=== PATIENT | male | born 1960 | race Caucasian/White ===

== ENCOUNTER 2018-11-03 21:36 | Inpatient (IN) | payer OTHER ==
[~2018-11-03] VITALS: Ht 190.5 cm; Wt 91.0 kg
[2018-11-03] MEDS ORDERED: SOD CHLORIDE 0.9% 1,000 ML IV STA (22:16)
[2018-11-03] MEDS ORDERED: ONDANSETRON 4 MG INJ IV STA (22:16)
[2018-11-03] MEDS ORDERED: morphine 4 MG/ML VIAL IV STA (22:20)
--- NOTE | 2018-11-03 22:25 | ERD ---
ER Documentation Chief Complaint Chief Complaint patient c/o nausea; not feeling good x 2 days HPI This is a 58-year-old male who presents for dilation of nausea, and left-sided abdominal pain, he has a history of a left inguinal hernia, which is currently being planned for repair. He has not had any vomiting, he has not noted any skin changes, he denies a fever. He has not had any chest pain or shortness of breath. He has been having normal bowel movements. ROS All systems reviewed and are negative except as per history of present illness. Allergies Allergies: Coded Allergies: No Known Allergy (Unverified , 11/03/18) Physical Exam Vitals Vital Signs Date Temp Pulse Resp B/P (MAP) Pulse Ox O2 O2 Flow FiO2 Time Delivery Rate 11/04/18 83 18 140/80 98 Room Air 00:00 (100) 11/03/18 97.1 96 18 130/83 97 21:55 (99) Physical Exam Const: No acute distress, afebrile, nontoxic Head: Atraumatic Eyes: Normal Conjunctiva ENT: Normal External Ears, Nose and Mouth. Neck: Full range of motion. No meningismus. Resp: Clear to auscultation bilaterally Cardio: Regular rate and rhythm, no murmurs Abd: Soft, there is tenderness over the left inguinal area, there is no overlying erythema or induration, there is no crepitus, there is no rebound or guarding. Normal bowel sounds Skin: No petechiae or rashes Back: No midline or flank tenderness Ext: No cyanosis, or edema Neur: Awake and alert Psych: Normal Mood and Affect Result Diagram: 11/03/188 11/03/182228 Results 24 hrs Laboratory Tests Test 11/03/18 22:28 11/03/18 22:29 11/03/18 22:32 White Blood Count 16.0 10^3/ul Red Blood Count 5.52 10^6/ul Hemoglobin 16.3 g/dl Hematocrit 48.7 % Mean Corpuscular Volume 88.2 fl Mean Corpuscular Hemoglobin 29.5 pg Mean Corpuscular 33.5 g/dl Hemoglobin Concent Red Cell Distribution Width 13.0 % Platelet Count 306 10^3/UL Mean Platelet Volume 9.8 fl Immature Granulocytes % 0.300 % Neutrophils % 83.5 % Lymphocytes % 9.1 % Monocytes % 6.6 % Eosinophils % 0.3 % Basophils % 0.2 % Nucleated Red Blood Cells % 0.0 /100WBC Immature Granulocytes # 0.050 10^3/ul Neutrophils # 13.4 10^3/ul Lymphocytes # 1.5 10^3/ul Monocytes # 1.1 10^3/ul Eosinophils # 0.1 10^3/ul Basophils # 0.0 10^3/ul Nucleated Red Blood Cells # 0.0 10^3/ul Troponin I < 0.012 ng/ml Sodium Level 140 mmol/L Potassium Level 3.7 mmol/L Chloride Level 98 mmol/L Carbon Dioxide Level 29 mmol/L Anion Gap 13 Blood Urea Nitrogen 24 mg/dl Creatinine 0.77 mg/dl Est Glomerular Filtrat Rate mL/min > 60 mL/min Glucose Level 188 mg/dl Calcium Level 10.1 mg/dl Total Bilirubin 0.8 mg/dl Direct Bilirubin 0.00 mg/dl Indirect Bilirubin 0.8 mg/dl Aspartate Amino Transf (AST/SGOT) 16 IU/L Alanine 24 IU/L Aminotransferase (ALT/SGPT) Alkaline Phosphatase 38 IU/L Total Protein 6.9 g/dl Albumin 4.3 g/dl Globulin 2.60 g/dl Albumin/Globulin Ratio 1.65 Lipase 54 U/L POC Venous Lactate 1.4 mmol/L Current Medications Medications Dose Sig/Taj Start Time Status Last (Trade) Ordered Route PRN Stop Time Admin Dose Reason Admin Sodium 1,000 ml @ Q1H STAT 11/03/18 DC 11/03/18 Chloride 1,000 mls/hr IV 22:16 22:34 11/03/18 23:15 Ondansetron 4 mg ONCE STAT 11/03/18 DC 11/03/18 HCl (Zofran IV 22:16 22:35 Inj) 11/03/18 22:17 Morphine 4 mg ONCE STAT 11/03/18 DC 11/03/18 Sulfate IV 22:20 22:35 (morphine) 11/03/18 22:21 Procedures/MDM This is a 58-year-old male who presents for evaluation of left inguinal pain. On exam, there was left-sided inguinal hernia, that was palpable, and not reducible. CT abdomen pelvis was performed which showed an incarcerated left- sided hernia, with evidence of small bowel obstruction. Lactate was negative, patient has remained hemodynamic stable in the ED. Discussed plan of care with family, and the patient will be admitted. Accepting Care Team: Current data and ongoing care discussed. Primary: Too Consulting: Brian Outstanding Data: none EKG: Rate/Rhythm: Normal Sinus Rhythm QRS, ST, T-waves: No changes consistent w/ acute ischemia Impression: No evidence of ischemia or arrhythmia Departure Diagnosis: Primary Impression: Incarcerated hernia Additional Impression: Small bowel obstruction Condition: Stable NILSA PEREZ MD Nov 03, 2018 22:25
[2018-11-04] VITALS (13 sets, daily range): BP systolic 94–145; BP diastolic 57–81; PULSE 56–89; RESP 16–21; Ht 190.5 cm; Wt 91.0 kg
[2018-11-04] MEDS ORDERED: ONDANSETRON 4 MG INJ IV PRN ×3 (03:00→13:00)
[2018-11-04] MEDS ORDERED: morphine 4 MG/ML VIAL IV PRN (03:00)
[2018-11-04] MEDS: DEXTROSE 5%-0.45% NACL 1,000 ML IV SCH ×3 (03:19→16:42)
--- NOTE | 2018-11-04 10:41 | HP ---
DATE OF ADMISSION: 11/04/2018 CHIEF COMPLAINT: Left lower abdominal pain associated with nausea x2 days. HISTORY OF PRESENT ILLNESS: A 58-year-old male with unremarkable past medical history who presented to emergency room with complaint of left-sided lower abdominal pain x2 days associated with nausea. The patient has had a left inguinal hernia. He denies any vomiting. He denies any fevers or chills. Initial evaluation revealed white blood cell count of 16,000. Lactate level was normal. CAT scan of the abdomen and pelvis showed moderate left inguinal hernia containing a focal loop of small bowel with surrounding stranding and fluid suggestive of incarceration. There was evidence of small-bowel obstruction. Small right inguinal hernia was also noted containing non-obstructed loop of small bow el. On review of systems the patient denies any chest pain at rest or with exertion. He has no cardiac h istory. PAST MEDICAL HISTORY: None. MEDICATIONS PRIOR TO ADMISSION: None. SOCIAL HISTORY: The patient has a long history of heavy tobacco use and smokes 1 pack of cigarettes per day. He denies alcohol. PHYSICAL EXAMINATION: GENERAL: Well-developed, well-nourished male who is in no apparent distress. VITAL SIGNS: Stable. He is afebrile. HEENT: Extraocular muscles intact. Pupils are equal, round and reactive to light bilaterally. Scle ramirez are anicteric. Oropharynx is clear and moist. NECK: Supple, no JVD, no carotid bruits. LUNGS: Clear to auscultation bilaterally. CARDIAC: Regular rate and rhythm. No murmurs, rubs or gallops. ABDOMEN: Soft, nontender, nondistended. EXTREMITIES: Left inguinal bulge was noted, which was mildly tender to palpation and nonreducible. EXTREMITIES: No clubbing, cyanosis, or edema. NEUROLOGIC: Nonfocal. LABORATORY DATA: His basic metabolic panel was within normal limits. ASSESSMENT: 1. A 58-year-old male with incarcerated left inguinal hernia. 2. Small right inguinal hernia. 3. Nicotine addiction. PLAN: 1. Admit to med/surg n.p.o. 2. Proceed with the repair of bilateral inguinal hernias. 3. The patient is medically cleared for the proposed procedure. Dictated By: ESTEE GOLDSTEIN/KEN Conf#: [id number] DID#: [id number] CC: ESTEE DEL ROSARIO MD;*EndCC*
--- NOTE | 2018-11-04 11:00 | PREAC ---
Date/Time of Note Date/Time of Note DATE: 11/04/18 TIME: 10:59 Anesthesia Eval and Record Evaluation Time Pre-Procedure Interview DATE: 11/04/18 TIME: 10:59 Age 58 Sex male NPO: 8 hrs Preoperative diagnosis left incarcerated inguinal hernia, SBO Planned procedure Left inguinal hernia repair Past Medical History Past Medical History: None Surgery & Anesthesia Issues No known issue Meds Anticoagulation: No Beta Anette within 24 hr: No Reason Beta Anette not given: Pt. not on B-Anette Current Medications Morphine Sulfate (morphine) 3 mg Q3H PRN IV SEVERE PAIN LEVEL 7-10; Start 11/04/18 at 03:00 Ondansetron HCl (Zofran Inj) 4 mg Q6H PRN IV NAUSEA AND/OR VOMITING; Start 11/04/18 at 03:00 Dextrose/Sodium Chloride 1,000 ml @ 100 mls/hr Q10H IV Last administered on 11/04/18at 03:19; Admin Dose 100 MLS/HR; Start 11/04/18 at 03:00 Meds reviewed: Yes Allergies Coded Allergies: No Known Allergy (Unverified , 11/03/18) Allergies Reviewed: Yes Labs/Studies Labs Reviewed: Reviewed by anesthesiologist Result Diagram: 11/03/18 2228 11/03/18 2229 Laboratory Tests 11/03/18 22:28 11/03/18 22:29 test: N/A Studies: ECG (sr), CXR (n/a) Pre-procedure Exam Last vitals Vital Signs Date Temp Pulse Resp B/P (MAP) Pulse Ox O2 O2 Flow FiO2 Time Delivery Rate 11/04/18 98.5 78 18 111/69 93 Room Air 07:19 (83) 11/04/18 2.0 01:48 Airway: Adequate mouth opening Mallampati: Mallampati I Teeth: Normal Lung: Normal Heart: Normal ASA Physical Status ASA physical status: 1 Emergency: None Planned Anesthetic General/MAC: ETT, LMA Nerve block: TAP (left) Planned Pain Management Single shot nerve block, Parenteral pain med Pre-operative Attestations Prior to commencing anesthesia and surgery, the patient was re-evaluated, there was verification of: *The patient's identity *The results of appropriate recent lab work and preoperative vital signs *The above evaluation not changing prior to induction *Anesthetic plan, risk benefits, alternative and complications discussed with patient/family; questions answered; patient/family understands, accepts and wishes to proceed. GRECIA NICOLAS MD Nov 04, 2018 11:00
[2018-11-04] MEDS ORDERED: BUPIVACAINE 0.25% (MPF) 30 ML INJ ONE (11:02)
[2018-11-04] MEDS ORDERED: ONDANSETRON 4 MG INJ ONE (11:12)
[2018-11-04] MEDS ORDERED: NEOSTIGMINE 3 MG/3 ML SYRINGE ONE (11:12)
[2018-11-04] MEDS ORDERED: METOCLOPRAMIDE 10 MG INJ ONE (11:12)
[2018-11-04] MEDS ORDERED: PROPOFOL 20 ML ONE (11:12)
[2018-11-04] MEDS ORDERED: MIDAZOLAM 1 MG/ML 2 ML INJ ONE (11:12)
[2018-11-04] MEDS ORDERED: ROPIVACAINE 0.5 % 30 ML VIAL ONE (11:12)
[2018-11-04] MEDS ORDERED: CEFAZOLIN 1 GM INJ ONE (11:12)
[2018-11-04] MEDS ORDERED: GLYCOPYRROLATE 0.4 MG INJ ONE (11:12)
[2018-11-04] MEDS ORDERED: ROCURONIUM 50 MG INJ ONE (11:12)
--- NOTE | 2018-11-04 11:12 | CONS ---
Assessment/Plan Assessment/Plan Assessment/Plan (Daily) Incarcerated left inguinal hernia with small bowel obstruction Plan: Urgent operative repair. Possible bowel resection. Consultation Date/Type/Reason Admit Date/Time Nov 04, 2018 at 01:32 Date of Consultation: Nov 04, 2018 Type of Consult General surgery Reason for Consultation Incarcerated left inguinal hernia with small bowel obstruction Date/Time of Note DATE: 11/04/18 TIME: 11:09 Hx of Present Illness The patient is an otherwise healthy 58-year-old gentleman who has known bilateral inguinal hernias. He presents with a 1 day history of severe pain in the left groin associated with incarcerated mass and associated nausea and vomiting. CT scan shows an incarcerated left inguinal hernia with involvement of the loop of small bowel and a small bowel obstruction. Review of systems: HEENT: Within normal limits Pulmonary: No history of asthma, pneumonia or shortness of breath Cardiac: No history of chest pain, MO or arrhythmia GI: As in the HPI : Asymptomatic Past Medical History Medical History: no pertinent history Medications Current Medications Morphine Sulfate (morphine) 3 mg Q3H PRN IV SEVERE PAIN LEVEL 7-10; Start 11/04/18 at 03:00 Ondansetron HCl (Zofran Inj) 4 mg Q6H PRN IV NAUSEA AND/OR VOMITING; Start 11/04/18 at 03:00 Dextrose/Sodium Chloride 1,000 ml @ 100 mls/hr Q10H IV Last administered on 11/04/18at 03:19; Admin Dose 100 MLS/HR; Start 11/04/18 at 03:00 Hydromorphone HCl (Dilaudid) 0.2 mg PACU PRN IV MILD PAIN 1-3; Start 11/04/18 at 11:30; Stop 11/04/18 at 19:00; Status UNV Hydromorphone HCl (Dilaudid) 0.4 mg PACU PRN IV MOD PAIN 4-6; Start 11/04/18 at 11:30; Stop 11/04/18 at 19:00; Status UNV Hydromorphone HCl (Dilaudid) 0.6 mg PACU PRN IV SEVERE PAIN 7-10; Start 11/04/18 at 11:30; Stop 11/04/18 at 19:00; Status UNV Fentanyl (Sublimaze) 25 mcg PACU ORDER PRN IV MILD PAIN 1-3; Start 11/04/18 at 11:30; Stop 11/04/18 at 19:00; Status UNV Fentanyl (Sublimaze) 50 mcg PACU ORDER PRN IV MOD PAIN 4-6; Start 11/04/18 at 11:30; Stop 11/04/18 at 19:00; Status UNV Fentanyl (Sublimaze) 75 mcg PACU ORDER PRN IV SEVERE PAIN 7-10; Start 11/04/18 at 11:30; Stop 11/04/18 at 19:00; Status UNV Ketorolac Tromethamine (Toradol) 30 mg PACU ORDER PRN IV FOR PAIN AFTER IV NARCOTIC MED; Start 11/04/18 at 11:30; Stop 11/04/18 at 19:00; Status UNV Ondansetron HCl (Zofran Inj) 4 mg PACU ORDER PRN IV NAUSEA/VOMITING; Start 11/04/18 at 11:30; Stop 11/04/18 at 19:00; Status UNV Meperidine HCl (Demerol) 25 mg PACU ORDER PRN IV .RIGORS; Start 11/04/18 at 11:30; Stop 11/04/18 at 19:00; Status UNV Diphenhydramine HCl (Benadryl) 25 mg PACU ORDER PRN IV .PRURITUS; Start 11/04/18 at 11:30; Stop 11/04/18 at 19:00; Status UNV Allergies: Coded Allergies: No Known Allergy (Unverified , 11/03/18) Past Surgical History Past Surgical Hx: no surgical history Social History Smoking Status: Current every day smoker Exam/Review of Systems Exam Vitals Vital Signs Date Temp Pulse Resp B/P (MAP) Pulse Ox O2 O2 Flow FiO2 Time Delivery Rate 11/04/18 98.5 78 18 111/69 93 Room Air 07:19 (83) 11/04/18 2.0 01:48 Intake and Output 11/03/18 11/03/18 11/04/18 1515:00 23:00 07:00 IntakeIntake Total 300 ml BalanceBalance 300 ml Constitutional: alert, oriented Psych: no complaints Head: normocephalic Eyes: nl conjunctiva ENMT: nl external ears & nose Neck: supple Respiratory: clear to auscultation Cardiovascular: regular rate and rhythm Gastrointestinal: soft Genitourinary - Male: nl penis, other (Bilateral inguinal hernia. 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 Skin: nl turgor Results Result Diagram: 11/03/18222711/03/189 Results 24hrs Laboratory Tests Test 11/03/18 22:28 11/03/18 22:29 11/03/18 22:32 White Blood Count 16.0 H Red Blood Count 5.52 Hemoglobin 16.3 Hematocrit 48.7 Mean Corpuscular Volume 88.2 Mean Corpuscular Hemoglobin 29.5 Mean Corpuscular Hemoglobin Concent 33.5 Red Cell Distribution Width 13.0 Platelet Count 306 Mean Platelet Volume 9.8 Immature Granulocytes % 0.300 Neutrophils % 83.5 H Lymphocytes % 9.1 L Monocytes % 6.6 Eosinophils % 0.3 Basophils % 0.2 Nucleated Red Blood Cells % 0.0 Immature Granulocytes # 0.050 H Neutrophils # 13.4 H Lymphocytes # 1.5 Monocytes # 1.1 H Eosinophils # 0.1 Basophils # 0.0 Nucleated Red Blood Cells # 0.0 Troponin I < 0.012 Sodium Level 140 Potassium Level 3.7 Chloride Level 98 Carbon Dioxide Level 29 Anion Gap 13 Blood Urea Nitrogen 24 H Creatinine 0.77 Est Glomerular Filtrat Rate mL/min > 60 Glucose Level 188 Calcium Level 10.1 Total Bilirubin 0.8 Direct Bilirubin 0.00 Indirect Bilirubin 0.8 Aspartate Amino Transf (AST/SGOT) 16 Alanine Aminotransferase (ALT/SGPT) 24 Alkaline Phosphatase 38 L Total Protein 6.9 Albumin 4.3 Globulin 2.60 Albumin/Globulin Ratio 1.65 Lipase 54 POC Venous Lactate 1.4 Medications Medication Current Medications Morphine Sulfate (morphine) 3 mg Q3H PRN IV SEVERE PAIN LEVEL 7-10; Start 11/04/18 at 03:00 Ondansetron HCl (Zofran Inj) 4 mg Q6H PRN IV NAUSEA AND/OR VOMITING; Start 11/04/18 at 03:00 Dextrose/Sodium Chloride 1,000 ml @ 100 mls/hr Q10H IV Last administered on 11/04/18at 03:19; Admin Dose 100 MLS/HR; Start 11/04/18 at 03:00 Hydromorphone HCl (Dilaudid) 0.2 mg PACU PRN IV MILD PAIN 1-3; Start 11/04/18 at 11:30; Stop 11/04/18 at 19:00; Status UNV Hydromorphone HCl (Dilaudid) 0.4 mg PACU PRN IV MOD PAIN 4-6; Start 11/04/18 at 11:30; Stop 11/04/18 at 19:00; Status UNV Hydromorphone HCl (Dilaudid) 0.6 mg PACU PRN IV SEVERE PAIN 7-10; Start 11/04/18 at 11:30; Stop 11/04/18 at 19:00; Status UNV Fentanyl (Sublimaze) 25 mcg PACU ORDER PRN IV MILD PAIN 1-3; Start 11/04/18 at 11:30; Stop 11/04/18 at 19:00; Status UNV Fentanyl (Sublimaze) 50 mcg PACU ORDER PRN IV MOD PAIN 4-6; Start 11/04/18 at 11:30; Stop 11/04/18 at 19:00; Status UNV Fentanyl (Sublimaze) 75 mcg PACU ORDER PRN IV SEVERE PAIN 7-10; Start 11/04/18 at 11:30; Stop 11/04/18 at 19:00; Status UNV Ketorolac Tromethamine (Toradol) 30 mg PACU ORDER PRN IV FOR PAIN AFTER IV NARCOTIC MED; Start 11/04/18 at 11:30; Stop 11/04/18 at 19:00; Status UNV Ondansetron HCl (Zofran Inj) 4 mg PACU ORDER PRN IV NAUSEA/VOMITING; Start 11/04/18 at 11:30; Stop 11/04/18 at 19:00; Status UNV Meperidine HCl (Demerol) 25 mg PACU ORDER PRN IV .RIGORS; Start 11/04/18 at 11:30; Stop 11/04/18 at 19:00; Status UNV Diphenhydramine HCl (Benadryl) 25 mg PACU ORDER PRN IV .PRURITUS; Start 11/04/18 at 11:30; Stop 11/04/18 at 19:00; Status UNV CHAPITO ESCOBEDO MD Nov 04, 2018 11:12
[2018-11-04] MEDS ORDERED: KETOROLAC 30 MG INJ ONE (11:15)
[2018-11-04] MEDS ORDERED: HYDROmorphONE 1 MG/5 ML IV SYRINGE IV PRN ×3 (11:30)
[2018-11-04] MEDS ORDERED: BUPIVACAINE 0.25% (MPF) 30 ML INJ INJ ONE (11:30)
[2018-11-04] MEDS ORDERED: FENTAnyl 50 MCG/ML VIAL IV PRN ×3 (11:30)
[2018-11-04] MEDS ORDERED: MEPERIDINE 25 MG INJ IV PRN (11:30)
[2018-11-04] MEDS ORDERED: KETOROLAC 30 MG INJ IV PRN (11:30)
[2018-11-04] MEDS ORDERED: DIPHENHYDRAMINE 50 MG INJ IV PRN (11:30)
[2018-11-04] MEDS ORDERED: EPHEDrine 25 MG/5 ML SYG ONE (11:43)
[2018-11-04] MEDS ORDERED: POLYMYXIN/BACITRACIN 1L IRRIG IRR ONE (11:50)
--- NOTE | 2018-11-04 12:33 | OPR ---
Date/Time of Note Date/Time of Note DATE: 11/04/18 TIME: 12:28 Operative Report Procedure Date: Nov 04, 2018 Preoperative Diagnosis Incarcerated left inguinal hernia with secondary small bowel obstruction Postoperative Diagnosis Incarcerated direct left inguinal hernia with secondary small bowel obstruction. Involved small bowel viable. Operation/Procedure Performed 1. Repair left inguinal hernia with extra large plug and release of small bowel obstruction 2. Left ilioinguinal nerve block Surgeon Chapito Escobedo MD [employer] None Anesthesia Type: general Anesthesiologist: GRECIA NICOLAS MD Estimated Blood Loss: minimal Transfusion none Specimen None Grafts/Implants Extra-large Bard PerFix plug Tubes/Drains None Complications none Pt Condition Post Procedure: stable Disposition: PACU Indications Small bowel obstruction Procedure Description After satisfactory general endotracheal anesthesia was achieved, the abdomen and scrotum were prepped and draped in the usual fashion. A 6 cm transverse suprapubic left groin incision was made and carried down to the external oblique aponeurosis which was opened in the direction of its fibers. The hernia could not be reduced at this point yet. The cord was dissected from the hernia sac. The sac was dissected circumferentially. Once this was done it reduced easily. The defect was a direct inguinal hernia. The reduction was maintained by placement of an extra-large plug secured circumferentially to healthy fascia with interrupted 3-0 Vicryl suture. Next the flat portion of the mesh was cut and fashioned to fit in the floor the canal is an overlay. It was anchored at the pubic tubercle with 2-0 Novafil then run approximating mesh to inguinal ligament laterally to be on the internal ring. A second 2-0 Novafil was then run from pubic tubercle to beyond the internal ring approximating mesh to conjoined tendon. The mesh distal to the cord was reconstituted with a single suture of 3-0 Vicryl creating a new internal ring of appropriate size. The cord was then replaced beneath the external oblique which was closed with a running 3-0 Vicryl suture. Albertina's fascia was closed with interrupted 3-0 Vicryl suture and skin closed with subcuticular absorbable carlos. A left inguinal nerve block was performed. 10 cc of 0.25% plain Marcaine were injected into the fascia 1 cm medial and inferior to the left anterior iliac spine. 10 more cc of local anesthetic were injected directly into the skin and subcutaneous tissues. Sponge and needle counts were reported as correct x2 CHAPITO ESCOBEDO MD Nov 04, 2018 12:33
[2018-11-04] MEDS ORDERED: OXYCODONE/ACETAMINOPHEN (5/325) TAB PO PRN ×2 (13:00)
[2018-11-04] MEDS ORDERED: morphine 2 MG INJ IV PRN (13:00)
[2018-11-05 01:34] VITALS: BP 100/55; PULSE 72; RESP 16
[2018-11-05] MEDS ORDERED: ACETAMINOPHEN 325 MG TAB PO PRN (02:00)
[2018-11-05] MEDS: DEXTROSE 5%-0.45% NACL 1,000 ML IV SCH ×2 (02:13→09:00)
--- NOTE | 2018-11-05 07:21 | PAC ---
Date/Time of Note Date/Time of Note DATE: 11/05/18 TIME: 07:21 Post-Anesthesia Notes Post-Anesthesia Note Last documented vital signs Vital Signs Date Temp Pulse Resp B/P (MAP) Pulse Ox O2 O2 Flow FiO2 Time Delivery Rate 11/05/18 98.8 03:58 11/05/18 98.8 72 16 100/55 97 01:34 (70) 11/04/18 Room Air 13:29 11/04/18 2.0 01:48 Activity: WNL Respiratory function: WNL Cardiovascular function: WNL Mental status: Baseline Pain reasonably controlled: Yes Hydration appropriate: Yes Nausea/Vomiting absent: No GRECIA NICOLAS MD Nov 05, 2018 07:21
[2018-11-05 07:24] VITALS: BP 103/51; PULSE 78; RESP 18
[2018-11-05] MEDS ORDERED: HYDR-4011 PO (09:02)
--- NOTE | 2018-11-05 09:03 | PDOCDIS ---
Discharge Instructions CONDITION [id number] Patient Condition: Mudig0h Good HOME CARE INSTRUCTIONS: Iserh7Fl Diet Instructions: [id number] Regular ACTIVITY: Aytyh7Mb Activity Restrictions: [id number] Slowly Increase Activity Avoid heavy lifting FOLLOW UP/APPOINTMENTS Follow-up Plan pcp [address] Torres 1 week OTHER ORDERS: Other Orders: stop smoking ESTEE DEL ROSARIO MD Nov 05, 2018 09:03
--- NOTE | 2018-11-05 10:12 | DS ---
DATE OF ADMISSION: 11/04/2018 DATE OF DISCHARGE: DISCHARGE DIAGNOSES: 1. A 58-year-old male with incarcerated left inguinal hernia. 2. Small-bowel obstruction. 3. Status posts repair of left inguinal hernia and release of incarceration. 4. Small right-sided inguinal hernia. 5. Nicotine addiction. HOSPITAL COURSE: A 58-year-old male who presented with complaint of diffuse abdominal pain associate d with nausea. He was diagnosed with incarcerated left inguinal hernia and small-bowel obstruction. The patient was taken to the operating room by Dr. Escobedo and underwent repair of inguinal hernia an d release of the incarcerated bowel. There were no intraoperative or postoperative complications. T he patient is tolerating oral intake. He is in a stable condition for discharge. I strongly advised him to stop smoking. [place] was prescribed. The patient will follow up with PCP and Dr. Escobedo. He was cleared for discharge by Dr. Escobedo. Dictated By: ESTEE GOLDSTEIN/NTS Conf#: [id number] DID#: [id number] CC: CHAPITO ESCOBEDO MD;*[facility]*
[2018-11-05 12:43] VITALS: PULSE 77
== END 2018-11-05 12:50 | disposition home health service (06) | DRG 352 ==
LOC: E/R 21:36 → 2NE 11-04 01:32
PROVIDERS: ADMIT Internal Medicine; ATTEND Internal Medicine
PROC: 0YU60JZ Supplement Left Inguinal Region with Synthetic Substitute, Open Approach (ICD-10-PCS; principal; 2018-11-04 12:00)
DX: K40.00 Bilateral inguinal hernia, with obstruction, without gangrene, not specified as recurrent (principal); F17.210 Nicotine dependence, cigarettes, uncomplicated
CPT/HCPCS: 36415; 74176; 80053; 83605; 83690; 84484; 85025; 93005; 96374; 96375; C1781; J0690; J1885; J2250; J2270; J2405; J2710; J2765; J2795; J7030; J7042